=== PATIENT | female | born 1970 | race Caucasian/White ===

== ENCOUNTER 2024-07-07 13:29 | Emergency (ER) | payer MEDICAID, SELFPAY ==
[2024-07-07 13:47] VITALS: BP 99/80; PULSE 77; RESP 18; TEMP 36.9; O2SAT 98
--- NOTE | 2024-07-07 13:47 | XR_ITS ---
Examination: CT lumbar spine, without contrast. 2-D sagittal reconstructions. 2-D coronal reconstructions. 3-D reconstructions. Date and time of exam:July 07, 2024 1446 hours INDICATIONS: Patient fell today with injury to the lower back, lower back pain CTDI: vol (mGy):31.8 DLP: (mGycm):31 Technique: Multiple 1.25 mm axial sections of the lumbar spine without intravenous contrast have been obtained. 2-D sagittal and coronal reconstructions have been obtained. 3-D reconstructions have been obtained. Low dose protocols were performed. One or more of the following dose reduction techniques were used; automated exposure control, adjustment of the mA and/or KV according to patient size, use of iterative reconstruction technique. Findings: Severe osteopenia Acute fractures L5 vertebral body, depression superior endplate, on this study 30% reduction in height Retropulsion posterior superior margin of this vertebral body 4 mm The pedicles laminated are intact L5-S1 3 mm central lumbar disc bulge L4-L5 2 mm central lumbar disc bulge IMPRESSION: Acute fractures L5 vertebral body, depression superior endplate, 30% reduction in height Retropulsion posterior left superior margin of this vertebral body 4 mm producing spinal stenosis
--- NOTE | 2024-07-07 13:47 | XR_ITS ---
Examination: CT pelvis without intravenous contrast. 2-D sagittal and coronal reconstructions. Date and time of exam:July 07, 2024 1426 hours INDICATIONS: Patient fell today with injury of the pelvis, pelvic pain CTDI: vol (mGy) :11.4 DLP: (mGycm) : 409 Technique: Multiple 3 mm axial sections of the pelvis have been obtained with the 64 slice high resolution scanner. 2-D sagittal and coronal reconstructions. Low dose protocols were performed. One or more of the following dose reduction techniques were used; automated exposure control, adjustment of the mA and/or KV according to patient size, use of iterative reconstruction technique. Findings: Prominent osteopenia Sacral segments intact Iliac bones including acetabular regions anterior rami intact No hip fractures or hip dislocations Acute fracture L5 vertebral body, depression superior endplate, reduction in height 25% Bladder intact No pelvic hematoma IMPRESSION: Acute fractures L5 vertebral body, reduction in height 25%
[2024-07-07] MEDS: HYDROcodone/APAP 5/325 TABLET 1 TAB PO (14:17)
--- NOTE | 2024-07-07 15:38 | PD.EDRME ---
Rapid Medical Screening Exam RME Arrival date/time: 07/07/24 13:29 53-year-old female presents emergency department complaint of lumbar back pain after fall today Chief Complaint: Back Pain/Injury Time Seen by Provider: 07/07/24 13:40 Vital signs: Vital Signs Temperature 98.5 F 07/07/24 13:47 Pulse Rate 77 07/07/24 13:47 Respiratory Rate 18 07/07/24 13:47 Blood Pressure 99/80 07/07/24 13:47 Pulse Oximetry (%) 98 07/07/24 13:47 Oxygen Delivery Method Room Air 07/07/24 13:47
--- NOTE | 2024-07-07 16:14 | EDNOTE_ITS ---
ED Back Injury Pain RME/HPI General Chief Complaint: Back Pain/Injury Stated Complaint: BACK PAIN Time Seen by Provider: 07/07/24 13:40 Arrival date/time: 07/07/24 13:29 RME / HPI RME / HPI Narrative: 07/07/24 13:29 53-year-old female presents emergency department complaint of lumbar back pain after fall today DR. LASSITER MAIN ED EVALUATION 53 year old female with history of diabetes and asthma presents to the ED for complaint of lower back pain after fall today. States she was pulling a trash bin by the lid out of the pool. States the lid broke off and caused her to fall back straight on her buttocks, landing on the edge of the cement. States since the fall she has had severe lower back pain that is aggravated with movements. Was able to stand with assistance of family and drove herself here. Mentioned after the fall she urinated a small amount on herself. Denied stool incontinence. No other injuries or complaints reported. Denies fevers, chills, neck pain, chest pain, cough, shortness of breath, abdominal pain, n/v. Mentioned 2 months ago she had fallen and since has had numbness to her toes. Related Data Home Medications ?Medication ?Instructions ?Recorded ?Confirmed NO HX MEDS ##0 03/19/08 12/23/23 allopurinol 100 mg tablet 100 mg PO QDAY 09/26/23 12/23/23 atorvastatin 40 mg tablet 40 mg PO QDAY 09/26/23 12/23/23 empagliflozin 10 mg tablet 10 mg PO QDAY 09/26/23 12/23/23 (Jardiance) fluoxetine 40 mg capsule (Prozac) 40 mg PO QDAY 09/26/23 12/23/23 gabapentin 300 mg capsule 300 mg PO QDAY 09/26/23 12/23/23 metformin 1,000 mg tablet 1,000 mg PO BID 09/26/23 12/23/23 montelukast 10 mg tablet 10 mg PO QDAY 09/26/23 12/23/23 (Singulair) omeprazole 40 mg capsule,delayed 40 mg PO QDAY 09/26/23 12/23/23 release trazodone 50 mg tablet 50 mg PO QDAY 09/26/23 12/23/23 Previous Rx's ?Medication ?Instructions ?Recorded azithromycin 250 mg tablet See Rx Instructions PO .COMPLEX #6 08/29/23 tabs benzonatate 100 mg capsule 100 mg PO BID PRN cough #20 caps 08/29/23 promethazine-DM 6.25 mg-15 mg/5 mL 5 ml PO Q6H PRN cough #473 mL 10/09/23 oral syrup meloxicam 7.5 mg tablet 7.5 mg PO QDAY #45 tabs 12/12/23 Allergies Allergy/AdvReac Type Severity Reaction Status Date / Time baclofen Allergy Severe Rash Verified 12/12/23 09:54 Fish Containing Products Allergy Severe Sneezing Verified 12/12/23 09:54 ibuprofen [From Motrin] Allergy Severe Gastrointestinal Verified 12/12/23 09:54 Upset meperidine Allergy Severe CHEST PAIN Verified 12/12/23 09:54 morphine Allergy Severe CHEST PAIN Verified 12/12/23 09:54 Penicillins Allergy Severe RASH Verified 12/12/23 09:54 shellfish derived Allergy Severe Sneezing Verified 12/12/23 09:54 Review of Systems Review of Systems Narrative Review of Systems: GEN: No fever, no chills, no weight loss EYES: No discharge, no visual changes, no pain HEENT: No ear pain, no congestion, no sore throat PULM: No shortness of breath, no cough, no congestion CV: No chest pain, no dyspnea on exertion, no palpitations GI: No nausea, no vomiting, no diarrhea, no pain, no constipation : No frequency, no urgency and no dysuria MUSC/SKEL No joint pain, +lower back pain SKIN: No rash NEURO: No weakness, no headache Past Medical History Past Medical History NEUROLOGIC: Negative Neurological Disorders RESPIRATORY: Positive Respiratory Disorders and Asthma ENDOCRINE: Positive Endocrine Disorders and Diabetes Mellitus Type 2 Social History SMOKING STATUS: Current some day smoker ED Exam Narrative Physical exam: GENERAL APPEARANCE: Well hydrated, well nourished, in mild distress. VITALS: All vitals were reviewed and the pulse ox is 98% on room air which is normal according to my interpretation. HEENT: Normocephalic, atramatic, EOMI, EACs are patent. There is no bulge or retraction. Throat without erythema or exudate. Moist oromucosa. No jaundice NECK: Supple, no JVD or bruits. CARDIOVASCULAR: Heart regular without S3-S4 or murmur. No rubs or gallops. LUNGS/CHEST: Clear to auscultation bilaterally. No rales, rhonchi, or wheezing. Normal inspection. ABDOMEN: Soft, nontender, with normal bowel sounds. No pulsatile masses. No rebound, rigidity, or guarding. No incarcerated hernia. Normal inspection and palpation. EXTREMITIES: Normal inspection and palpation. No edema, clubbing, or cyanosis. Intact CSM SKIN: Warm and dry without rashes. Normal inspection. MUSCULOSKELETAL: Normal inspection. No gross deformity, full ROM all extremities NEURO: Alert and oriented x3. Cranial nerves II through XII grossly intact. Plantar extension and flexion are normal, normal hip and leg extension and flexion, straight leg raise is positive at about 30 degrees. PSYCHIATRIC: Normal mood and affect. No psychosis Course Quality Measures none Orders Category Date Time Status Perez [Urinary Catheter] QS Care 07/07/24 17:40 Active Miscellaneous Nursing Order NOW Care 07/07/24 16:[address] lumbar spine wo con Stat Exams 07/07/24 13:[address] pelvis wo con Stat Exams 07/07/24 13:47 Completed CBC Stat Lab 07/07/24 16:53 Completed CMP [Comprehensive Metabolic Panel] Stat Lab 07/07/24 17:06 Received PT [Prothrombin Time with INR] Stat Lab 07/07/24 16:53 Completed PTT [Partial Thromboplastin Time] Stat Lab 07/07/24 16:53 Completed HYDROcodone*/APAP 5/325 [[place] 5/325] Med 07/07/24 13:47 Discontinued 1 tab PO X1 ONE Sodium Chloride 0.9% 1000 ml [Ns] 1,000 ml Med 07/07/24 16:30 Active IV 125 mls/hr Vital Signs Vital signs: Vital Signs Temperature 98.5 F 07/07/24 13:47 Pulse Rate 77 07/07/24 13:47 Respiratory Rate 18 07/07/24 13:47 Blood Pressure 99/80 07/07/24 13:47 Pulse Oximetry (%) 98 07/07/24 13:47 Oxygen Delivery Method Room Air 07/07/24 13:47 Back Pain / Injury MDM Narrative MDM Narrative:: Ivory Rubalcava am scribing for and in the presence of Dr. Lassiter. CBC unremarkable. CMP is pending. PT PTT and negative. CT lumbar spine was reviewed and interpreted by me as follows: Crush fracture of L5 vertebral body. With the upper vertebral portion and retropulsion into the spinal column. Pedicles intact. Lamina is intact. CT of the pelvis was reviewed and interpreted by me as follow: Crush fracture of the L5 vertebral body as above. Pelvic ring is intact and stable. Acetabular IR stable. No hip fracture. Sacrum is intact. 5:40 PM I spoke to and discussed with the transfer nurse from [facility] [place]. She said that Dr. peña, neuro surgeon has accepted the patient transfer. The patient is informed and agreeable. She will be transferred by ambulance. She is stable. She said that her surgeon wants to put a Perez in. And we are doing it. Critical care time is approximately 35 minutes excluding any procedure. The high probability of sudden, clinically significant deterioration in the patient?s condition required the highest level of my preparedness to intervene urgently. The services I provided to this patient were to treat and/or prevent clinically significant deterioration. Services included the following: chart data review, reviewing nursing notes and/or old charts, documentation time, applications development consultant collaboration regarding findings and treatment options, medication orders and management, direct patient care, vital sign assessments and ordering, interpreting and reviewing diagnostic studies and lab tests. Aggregate critical care time includes only time during which I was engaged in work directly related to the patient?s care, as described above, whether at bedside or elsewhere in the Emergency Department. It did not include time spent performing other reported procedures or the services of residents, students, nurses or physician assistants. Patient data External records reviewed:: [facility] previous records (I reviewed ED visit on 10/09/2023) Clinical information provided by:: patient Social determinants that could affect healthcare access:: none Patient has the following chronic illnesses:: Diabetes, asthma How is presenting disease/condition affected by chronic disease/condition?: uneffected by Evaluation data The following diagnostics were reviewed and interpreted by me:: lab results and radiology exam(s) Lab and/or radiology exams considered but not ordered:: None Interpretation Summary: Ordering Physician: Gabriele GUILLORY)Dae NP Date of Service: 07/07/24 Procedure(s): CT lumbar spine wo con Accession Number(s): [id number] cc: Gabriele GUILLORY)Dae NP; Ramsey Kauffman MD~ Examination: CT lumbar spine, without contrast. 2-D sagittal reconstructions. 2-D coronal reconstructions. 3-D reconstructions. Date and time of exam:July 07, 2024 1446 hours INDICATIONS: Patient fell today with injury to the lower back, lower back pain CTDI: vol (mGy):31.8 DLP: (mGycm):31 Technique: Multiple 1.25 mm axial sections of the lumbar spine without intravenous contrast have been obtained. 2-D sagittal and coronal reconstructions have been obtained. 3-D reconstructions have been obtained. Low dose protocols were performed. One or more of the following dose reduction techniques were used; automated exposure control, adjustment of the mA and/or KV according to patient size, use of iterative reconstruction technique. Findings: Severe osteopenia Acute fractures L5 vertebral body, depression superior endplate, on this study 30% reduction in height Retropulsion posterior superior margin of this vertebral body 4 mm The pedicles laminated are intact L5-S1 3 mm central lumbar disc bulge L4-L5 2 mm central lumbar disc bulge IMPRESSION: Acute fractures L5 vertebral body, depression superior endplate, 30% reduction in height Retropulsion posterior left superior margin of this vertebral body 4 mm producing spinal stenosis Dictated By: Ramsey Kauffman MD Signed By: <Electronically signed by Ramsey Kauffman MD in OV> 07/07/24 1528 Ordering Physician: Dae Suazo NP, NP Date of Service: 07/07/24 Procedure(s): CT pelvis wo con Accession Number(s): [id number] cc: Dae Suazo NP, NP; Ramsey Kauffman MD~ Examination: CT pelvis without intravenous contrast. 2-D sagittal and coronal reconstructions. Date and time of exam:July 07, 2024 1426 hours INDICATIONS: Patient fell today with injury of the pelvis, pelvic pain CTDI: vol (mGy) :11.4 DLP: (mGycm) : 409 Technique: Multiple 3 mm axial sections of the pelvis have been obtained with the 64 slice high resolution scanner. 2-D sagittal and coronal reconstructions. Low dose protocols were performed. One or more of the following dose reduction techniques were used; automated exposure control, adjustment of the mA and/or KV according to patient size, use of iterative reconstruction technique. Findings: Prominent osteopenia Sacral segments intact Iliac bones including acetabular regions anterior rami intact No hip fractures or hip dislocations Acute fracture L5 vertebral body, depression superior endplate, reduction in height 25% Bladder intact No pelvic hematoma IMPRESSION: Acute fractures L5 vertebral body, reduction in height 25% Dictated By: Ramsey Kafufman MD Signed By: <Electronically signed by Ramsey Kauffman MD in OV> 07/07/24 1526 Medications / Prescriptions Medications or Prescriptions considered but not ordered:: None Medication administrations:: Medication Administration History Sodium Chloride (Ns) 1,000 mls @ 125 mls/hr IV .Q8H ONE Stop: 07/08/24 00:29 Last Admin: 07/07/24 17:20 Dose: 125 mls/hr Documented By: MS Discontinued Medications Hydrocodone Bitart/Acetaminophen (Hydrocodone/Apap 5/325 Tablet) 1 tab PO X1 ONE Stop: 07/07/24 13:48 Last Admin: 07/07/24 14:17 Dose: 1 tab Documented By: ARF See above Consultations Consultation(s) initiated? (list below): Yes Consultation #1 (Physician, Specialty, Details): I spoke with transfer nurse at [facility]. Discussed patients PMHx, HPI, ED course, exam findings, labs, and radiology results. Time: 16:58 Consultation #2 (Physician, Specialty, Details): Neurosurgeon Dr. Peña has accepted the patient for admission. Time: 17:38 Diagnosis Most likely diagnosis given after review of the tests above:: Crush fracture of L5 Admission Indicated Admission indicated?: not indicated Explain why admission is indicated or not indicated:: Patient will be transferred to [facility] Admission Request Was there a request for admission?: No Disposition Plan Disposition Plan: Transfer (to [facility] ) Discharge Plan Plan Patient Disposition: Xfer Acute Care [facility] Facility Pt Being Transferred to: [facility] Service Needed for Transfer: Neurosurgery Disposition Comment: Stable for transfer Prescriptions/Referrals Prescriptions/Med Rec: No Action omeprazole 40 mg capsule,delayed release(DR/EC) 40 mg PO QDAY metformin 1,000 mg tablet 1,000 mg PO BID atorvastatin 40 mg tablet 40 mg PO QDAY gabapentin 300 mg capsule 300 mg PO QDAY allopurinol 100 mg tablet 100 mg PO QDAY fluoxetine [Prozac] 40 mg capsule 40 mg PO QDAY trazodone 50 mg tablet 50 mg PO QDAY Jardiance 10 mg tablet 10 mg PO QDAY montelukast [Singulair] 10 mg tablet 10 mg PO QDAY meloxicam 7.5 mg tablet 7.5 mg PO QDAY Qty: 45 3RF NO HX MEDS Qty: 0 Patient Comments: NO HX MEDS azithromycin 250 mg tablet See Rx Instructions .ROUTE .COMPLEX Qty: 6 0RF Rx Instructions: For 250 mg dose pack: take 500 mg today (day 1), then 250 mg for 4 days (days 2-5) benzonatate 100 mg capsule 100 mg PO BID PRN (Reason: cough) Qty: 20 0RF promethazine-DM 6.25-15 mg/5 mL syrup 5 ml PO Q6H PRN (Reason: cough) Qty: 473 0RF Referrals: Sancho Galan MD [Primary Care Provider] - In 1 week Problem List Clinical Impression: Closed L5 vertebral fracture Patient/Caregiver Discharge Instructions Print Language: Malay Stand Alone Forms: [facility]illa Award Info., Patient Portal Info Letter
--- NOTE | 2024-07-07 16:47 | PC.CM ---
Addendum entered by Lizzy Laureano RN 07/07/24 17:43: 1740 received call from Gladis at [facility], she stated pt is accepted for ED to ED transfer. Accepted by Dr. Ghulam Zimmer. Number for report is [phone]. Addendum entered by Lizzy Laureano RN 07/07/24 16:57: 1652 called [facility], spoke to Gladis and initiated the transfer. She wants to speak with Dr. Mack. Call transferred. Addendum entered by Lizzy Laureano RN 07/07/24 16:50: 1650 Images pushed to [facility] through [employer]. Original Note: 1645 clinicals sent to [facility]. 1630 received call from charge nurse that pt needs to be transferred for an acute fractures L5 vertebral body, depression superior endplate, 30% reduction in height needs neuro-surgical services needs neuro-surgical services.
[2024-07-07 16:50] VITALS: BP 130/95; PULSE 100; RESP 20; TEMP 37.3; O2SAT 99
[2024-07-07 17:11] LABS: Basophils % (Auto) 0 % (0-2.5); Eosinophils # (Auto) 0.1 Thou/mm3 (0.0-0.5); Eosinophils % (Auto) 1 % (0-10); Hematocrit 40.7 % (36.0-46.0); Hemoglobin 13.5 g/dL (12.0-16.0); Immature Granulocytes % (Auto) 1 % (0-0); Immature Granulocytes Auto 0.05 Thou/mm3 (0.00-0.00); Lymphocytes # (Auto) 1.1 Thou/mm3 (1.0-4.8); Lymphocytes % (Auto) 10 % (10-50); Mean Corpuscular HGB Conc 33.2 g/dl (31.0-37.0); Mean Corpuscular Volume 84 fL (80-100); Monocytes # (Auto) 0.3 Thou/mm3 (0.0-0.8); Monocytes % (Auto) 3 % (0-12); Neutrophils % (Auto) 85 % (37-80); Nucleated Red Blood Cell % 0 /100 WBC (0); Platelet Count 211 Thou/mm3 (140-440); RDW Standard Deviation 38.8 fL (36.4-46.3); Red Blood Count 4.83 Miln/mm3 (4.00-5.20); White Blood Count 10.6 Thou/mm3 (3.6-11.0)
[2024-07-07] MEDS: SODIUM CHLORIDE 0.9% 1000 ML 1,000 ML 125 ML IV (17:20)
[2024-07-07 17:29] LABS: Prothrombin Time 10.7 Seconds (9.0-12.2)
[2024-07-07 17:43] LABS: Alanine Aminotransferase 17 U/L (10-49); Albumin, Serum 3.8 gm/dL (3.5-5.0); Albumin/Globulin Ratio 1.4 (1.2-2.2); Alkaline Phosphatase 109 U/L (46-116); Anion Gap 4 (7-16); BUN/Creatinine Ratio 12 Ratio (12-20); Bilirubin,Total 0.4 mg/dL (0.3-1.2); Blood Urea Nitrogen 11 mg/dL (9-23); Calcium 9.3 mg/dL (8.3-10.6); Calcium (Corrected) 9.5 mg/dL (8.5-10.1); Carbon Dioxide 26.2 mMol/L (20.0-31.0); Chloride 105 mMol/L (98-107); Creatinine (Component) 0.9 mg/dL (0.6-1.3); Globulin 2.7 gm/dL (2.3-3.5); Glucose 182 mg/dL (74-106); Osmolality,Calculated 274 (275-295); Potassium 3.9 mMol/L (3.4-5.1); Sodium 135 mMol/L (136-145); Total Protein 6.5 gm/dL (5.7-8.2); eGFR > 60 See Note
[2024-07-07 17:51] LABS: Aspartate Amino Transferase 18 U/L (0-34)
--- NOTE | 2024-07-07 17:55 | PC.CC ---
Kianna AVERY was consulted by BARBER Martinez to help assist in setting up transportation.
--- NOTE | 2024-07-07 18:06 | PC.NURSE ---
Report given to Tabatha Estes [facility] ED
[2024-07-07 18:26] VITALS: BP 118/85; PULSE 99; RESP 16; TEMP 37.2; O2SAT 95
== END 2024-07-07 19:09 | disposition short-term general hospital (02) ==
PROVIDERS: Emergency Provider Emergency Medicine; PCP Family Medicine
DX: S32.058A Other fracture of fifth lumbar vertebra, initial encounter for closed fracture (principal); M48.061 Spinal stenosis, lumbar region without neurogenic claudication; W19.XXXA Unspecified fall, initial encounter
CPT/HCPCS: 36415; 72131; 72192; 80053; 85025; 85610; 85730; 99291; J7030; A9270

== ENCOUNTER → 2024-09-01 | Outpatient (CLI) | payer MEDICAID, SELFPAY ==
--- NOTE | 2024-09-01 14:51 | XR_ITS ---
Examination: Lumbar spine 3 views TECHNIQUE: Standing AP lateral coned lateral lower lumbar spine 3 views Exam date and time: September 01, 2024 1503 hours INDICATIONS: Injury to lower back 2 months ago, lower back pain., Acute fracture L5 vertebral body and CT scan lumbar spine July 07, 2024 FINDINGS: Stable compression fracture L5 vertebral body compared to CT scan lumbar spine July 07, 2024 Diffuse [id number] lumbar degenerative disc disease, most prominent L4-L5, L5-S1 Prominent osteopenia IMPRESSION: Stable compression fracture L5 vertebral body compared to CT scan lumbar spine July 07, 2024 Satisfactory alignment
== END | disposition home or self-care (01) ==
LOC: CDIM 14:31
PROVIDERS: PCP Family Medicine; Referring Provider Nurse Practitioner; Visit Provider Nurse Practitioner
DX: S32.058A Other fracture of fifth lumbar vertebra, initial encounter for closed fracture (principal); X58.XXXA Exposure to other specified factors, initial encounter
CPT/HCPCS: 72100

== ENCOUNTER 2025-01-21 13:30 | Outpatient (RCR) | payer MEDICAID, SELFPAY ==
--- NOTE | 2024-12-27 11:52 | PT.OIERPT ---
PT OP Initial Eval Patient Information Outpatient Physical Therapy Treatment Date: 12/27/24 Visit Reasons: Low Back pain Medical Diagnosis: Back Pain Treatment Dx #1: Back Pain Start of Care: 12/27/24 Date of Onset: Jun 2024 Smoking Status Smoking Status: Current every day smoker (yes) Cessation Counseling Provided: NINI was advised that quitting smoking is the single most important factor to protect the health of themselves and their family. Discussed the benefits of quitting smoking with patient. Encouraged patient to quit smoking and provided Cessation assistance materials and resources. Tobacco Use: Cigarette Years smoked: 20 Are you interested in quitting?: No Would you like additional Smoking Cessation Counseling?: No Initial Assessment Subjective: Pt is a 54 y/o female reports of chronic back pain (05/04) with numbness in her legs since her fall. Past imaging showed acute L5 fracture, however, surgical intervention was not indicated. Pt has limitation with sitting, standing, chores, self care, cooking, cleaning, and performing recreational activities. Objective: L/S AROM: all motions are 25% towards end range with pain Hip PROM: all motions are WFL Hip MMTs: grossly 3/5 Muscle Length: tight Hs Assessment: Pt demonstrate back pain with mobility deficits s/p fall leading to difficulty with ADLs. Pt will attempt physical therapy if pain persist Pt will be refer back to provider for further consultation. Short Term and Senior Living Goals 1) Increase L/S AROM WFL in 6 wks to be able to sit and stand more than 30 mins 2) Increase core strength WFL in 6 wks to be able to perform chores 3) Decrease back pain to 2/10 in 6 wks to be able to perform recreational activities 4) Increase hip MMTs grossly to 4/5 in 6 wks to be able to walk more than 30 mins 5) Indep with HEP Treatment Plan 1) Manual Therapy 2) Therapeutic Activities 3) Therapeutic Exercises 4) Modalities (ice, heat) 5) Balance Training 6) Gait Training Frequency and Duration: 2 x wk for 6 wks Certification Dates: 12/27/24 to 03/29/25 Procedure Charges OP PT Eval Mod Complex 30 minutes: Yes
--- NOTE | 2025-01-04 15:05 | PT.ODAYNRPT ---
PT Outpatient Daily Note OP Daily Note Outpatient Physical Therapy Treatment Date: 01/04/25 Visit Reasons: Low Back pain Subjective: Pt reports LBP, 8/10 pain. Objective: Please see flow sheet for there ex list. Assessment: Pt demonstrates poor activity tolerance due to pain response. Plan: Continue with POC. Length of Time (minutes) of Treatment: 30 Minutes Procedure Charges Therapeutic Exercise 30 minutes: Yes
--- NOTE | 2025-01-07 16:04 | PT.ODAYNRPT ---
PT Outpatient Daily Note OP Daily Note Outpatient Physical Therapy Treatment Date: 01/07/25 Visit Reasons: Low Back pain Subjective: Pt's back is about the same. No change in overall symptoms and feels stiff. Objective: Please see flow chart for list of ther ex performed Assessment: tolerate exercises with minimal pain; minimal changes with symptoms post PT session Plan: Continue with PT Length of Time (minutes) of Treatment: 30 Minutes Procedure Charges Therapeutic Exercise 30 minutes: Yes
--- NOTE | 2025-01-14 15:39 | PT.ODAYNRPT ---
PT Outpatient Daily Note OP Daily Note Outpatient Physical Therapy Treatment Date: 01/14/25 Visit Reasons: Low Back pain Subjective: Pt reports LBP is the same, c/o 8/10 pain. Objective: Please see flow sheet for ther ex list. Assessment: Pt demonstrates poor activity tolerance due to pain response. tactile cues for feedback to perform posterior pelvic tilt exercise with desired motion. Plan: Continue with pOC. Length of Time (minutes) of Treatment: 30 Minutes Procedure Charges Therapeutic Exercise 30 minutes: Yes
--- NOTE | 2025-01-21 14:34 | PT.ODAYNRPT ---
PT Outpatient Daily Note OP Daily Note Outpatient Physical Therapy Treatment Date: 01/21/25 Visit Reasons: Low Back pain Subjective: Pt's back is about the same. No change in overall symptoms. Objective: Please see flow chart for list of ther ex performed Assessment: tolerate exercises with minimal pain Plan: Continue with PT Length of Time (minutes) of Treatment: 30 Minutes Procedure Charges Therapeutic Exercise 30 minutes: Yes
== END 2025-01-22 23:59 | disposition home or self-care (01) ==
LOC: CPTX 13:30
PROVIDERS: PCP Physician Assistant; Referring Provider Physician Assistant; Visit Provider Physician Assistant
DX: M54.50 Low back pain, unspecified (principal); G89.29 Other chronic pain; S32.059D Unspecified fracture of fifth lumbar vertebra, subsequent encounter for fracture with routine healing; W19.XXXD Unspecified fall, subsequent encounter; Z71.6 Tobacco abuse counseling; F17.210 Nicotine dependence, cigarettes, uncomplicated
CPT/HCPCS: 97110; 97162

== ENCOUNTER 2025-02-04 11:00 | Outpatient (RCR) | payer MEDICAID, SELFPAY ==
--- NOTE | 2025-01-28 10:33 | PT.ODAYNRPT ---
PT Outpatient Daily Note OP Daily Note Outpatient Physical Therapy Treatment Date: 01/28/25 Visit Reasons: low back pain Subjective: Pt's back is okay. Pt still has difficulty with getting in/out of tub as well as stairs due to BLE weakness Objective: Please see flow chart for list of ther ex performed Assessment: tolerate exercises with minimal pain Plan: Continue with PT Length of Time (minutes) of Treatment: 30 Minutes Procedure Charges Therapeutic Exercise 30 minutes: Yes
--- NOTE | 2025-01-31 14:57 | PT.ODAYNRPT ---
PT Outpatient Daily Note OP Daily Note Outpatient Physical Therapy Treatment Date: 01/31/25 Visit Reasons: low back pain Subjective: Pt c/o 03/03 LBP today. Objective: Please see flow sheet for ther ex list. Assessment: Slow progress of intervention progression due to pt pain response. Plan: Continue with pOC. Length of Time (minutes) of Treatment: 30 Minutes Procedure Charges Therapeutic Exercise 30 minutes: Yes
--- NOTE | 2025-02-04 11:54 | PT.ODS1RPT ---
PT OP Progress/Discharge Note Date of Service: 02/04/25 Progress Note/DC Note Progress Note/Discharge Note: DC Note Patient Information Visit Reasons: low back pain Medical Diagnosis: Back Pain Treatment Dx #1: Back Pain Service Continue Service or Discharge: Discharge Discharge Date: 02/04/25 Status Subjective: Pt's back is about the same and continues to have leg pain with numbness. Due to pain and symptoms Pt has limitation with sitting, standing, chores, self care, walking, and performing recreational activities. Objective: L/S AROM: all motions are 50% towards end range with pain Hip PROM: all motions are WFL Hip MMTs: grossly 3/5 Muscle Length: tight Hs Assessment: Pt continues to have back pain with mobility deficits leading to difficulty with ADLs. Pt will no longer benefit from physical therapy due to minimal progress towards goals. Pt was instructed on HEP during her last session and educated to continue exercises to maintain overall mobility. Pt performed all exercises safely, thank you for your referrals. Plan: D/C home with HEP and follow up with MD MUNOZ Procedure Charges Therapeutic Exercise 30 minutes: Yes
== END 2025-02-21 23:59 | disposition home or self-care (01) ==
LOC: CPTX 11:00
PROVIDERS: PCP Physician Assistant; Referring Provider Physician Assistant; Visit Provider Physician Assistant
DX: M54.50 Low back pain, unspecified (principal); R20.0 Anesthesia of skin; G89.29 Other chronic pain
CPT/HCPCS: 97110